=== PATIENT | male | born 1990 | race Two or more races ===

== ENCOUNTER 2024-11-25 11:49 | Emergency (ER) | payer SELFPAY ==
[~2024-11-25] VITALS: Ht 172.7 cm; Wt 82.0 kg
[2024-11-25 12:00] VITALS: O2SAT 100
[2024-11-25 12:42] LABS: BASOPHILS % 0.4 % (0.0-2.0); HEMATOCRIT. 45.7 % (42.0-52.0); HEMOGLOBIN. 15.7 g/dL (14.0-18.0); LYMPHOCYTES % 29.1 % (20.0-50.0); MEAN CORPUSCULAR HEMOGLOBIN 32.3 pg (28.0-32.0); MEAN CORPUSCULAR HGB CONC 34.3 g/dL (31.0-37.0); MEAN CORPUSCULAR VOLUME 94.1 fL (80.0-94.0); MEAN PLATELET VOLUME 8.7 fl (7.4-10.4); NEUTROPHILS % 64.5 % (40.0-76.0); PLATELET 302 x1000/uL (130-400); RED BLOOD CELL COUNT 4.86 mill/uL (4.7-6.1); RED CELL DISTRIBUTION WIDTH 12.7 % (11.6-14.6); WHITE BLOOD COUNT 7.4 x1000/uL (4.5-11.0)
[2024-11-25] MEDS: LORAZEPAM 1MG TABLET PO ONE (12:48)
[2024-11-25 12:53] VITALS: BP 132/88; PULSE 100; RESP 18; TEMP 36.6; O2SAT 100
[2024-11-25 12:56] LABS: INR 1.1; PROTHROMBIN TIME 11.3 sec (9.6-11.0)
[2024-11-25 12:58] LABS: CHLORIDE 103 mEq/L (98-107); POTASSIUM 3.5 mEq/L (3.5-5.1); SODIUM 140 mEq/L (136-145)
[2024-11-25 12:59] LABS: CARBON DIOXIDE 23 mEq/L (21-32)
[2024-11-25 13:00] LABS: CALCIUM 9.8 mg/dL (8.7-10.4)
[2024-11-25 13:04] LABS: CREATININE 0.8 mg/dL (0.6-1.3); GLUCOSE 111 mg/dL (70-105)
[2024-11-25 13:05] LABS: UREA NITROGEN BLOOD 7 mg/dL (9-23)
== END 2024-11-25 14:13 | disposition home or self-care (01) ==
LOC: ER 11:49
DX: Z00.00 Encounter for general adult medical examination without abnormal findings (principal); R51.9 Headache, unspecified; R25.2 Cramp and spasm; R06.4 Hyperventilation; Z88.0 Allergy status to penicillin
CPT/HCPCS: 36415; 80048; 85025; 99283

== ENCOUNTER 2024-11-26 11:11 | Emergency (ER) | payer SELFPAY ==
[~2024-11-26] VITALS: Ht 172.7 cm; Wt 81.0 kg
[2024-11-26 11:16] VITALS: BP 149/87; TEMP 36.9; O2SAT 100
[2024-11-26 11:20] VITALS: PULSE 113; RESP 18; O2SAT 100
[2024-11-26] MEDS: LORAZEPAM 1MG TABLET PO ONE (12:11)
== END 2024-11-26 12:18 | disposition home or self-care (01) ==
LOC: ER 11:11
DX: F41.9 Anxiety disorder, unspecified (principal); Z88.0 Allergy status to penicillin
CPT/HCPCS: 99283